=== PATIENT | female | born 1995 | race Hispanic/Latino ===

== ENCOUNTER 2019-12-15 23:50 | Emergency (ER) | payer BC, OTHER ==
[~2019-12-15] VITALS: Ht 157.5 cm; Wt 93.4 kg
--- OUTSIDE RECORDS SUMMARY | ~2019-12-15 | XMS | Encounter Summary ---
Demographics + + + | Address | [address] | | | [place] [address] | + + + | Home Phone | | + + + | Preferred Language | Unknown | + + + | Marital Status | Single | + + + | Yarsani Affiliation | [phone] | + + + | Race | Unknown | + + + | Ethnic Group | or | + + + Author + + + | Author | [facility] | | | and [place] | + + + | Organization | [facility] | | | and [place] | + + + | Address | Unknown | + + + | Phone | Unavailable | + + + Support + + +---------+ + | Name | Relationship | Address | Phone | + + +---------+ + | Nathalia Sadler | ECON | Unknown | | + + +---------+ + Care Team Providers + +------+ + | Care Hydro Station Operator Name | Role | Phone | + +------+ + PCP | Unavailable | + +------+ + Encounter Details +--------+ + + + + | Date | Type | Department | Care Team | Description | +--------+ + + + + | 10/30/ | Emergency | [facility] | Hero Caal DO | Acute conjunctivitis | | 2017 | | [facility] | [address] | of both eyes, | | | | [facility] | [address], | unspecified acute | | | | [address] | [place] [address] | conjunctivitis type; | | | | [facility] | [phone] | Corneal abrasion of | | | | [address] | | both eyes due to | | | | [phone] | | contact lens | +--------+ + + + + Social History + +-------+ +--------+------+ | Tobacco Use | Types | Packs/Day | Years | Date | | | | | Used | | + +-------+ +--------+------+ | Never Smoker | | | | | + +-------+ +--------+------+ + + + | Sex Assigned at | Date Recorded | | | | + + + | Not on file | | + + + documented as of this encounter Last Filed Vital Signs + + + + + | Vital Sign | Reading | Time Taken | Comments | + + + + + | Blood Pressure | 122/67 | 10/30/2016 1:52 PM | | | | | PDT | | + + + + + | Pulse | 91 | 10/30/2016 1:52 PM | | | | | PDT | | + + + + + | Temperature | 36.7 C (98 F) | 10/30/2016 1:52 PM | | | | | PDT | | + + + + + | Respiratory Rate | 16 | 10/30/2016 1:52 PM | | | | | PDT | | + + + + + | Oxygen Saturation | - | - | | + + + + + | Inhaled Oxygen | - | - | | | Concentration | | | | + + + + + | Weight | 86.1 kg (189 lb 13.1 | 10/30/2016 1:52 PM | | | | oz) | PDT | | + + + + + | Height | 157.5 cm (5' 2") | 10/30/2016 1:52 PM | | | | | PDT | | + + + + + | Body Mass Index | 34.72 | 10/30/2016 1:52 PM | | | | | PDT | | + + + + + documented in this encounter Medications at Time of Discharge + + + +---------+ + + | Medication | Sig | Dispensed | Refills | Start | End Date | | | | | | Date | | + + + +---------+ + + | levonorgestrel | 1 each by | | 0 | 10/31/19 | | | (MIRENA, 52 MG,) 20 | Intrauterine route | | | 17 | | | MCG/24HR IUD | once. | | | | | + + + +---------+ + + documented as of this encounter ED Notes Hero Caal DO - 10/30/2016 12:52 PM PDT ED Provider Notes by Hero Caal DO at 10/30/16 0502 Author: Hero Caal DO Service: Emergency Department Author Type: Physician Filed: 11/09/16 2350 Date of Service: 10/30/16 9475 Status: Signed Weight Control Engineer: Hero Caal DO (Physician) [facility] Department of Emergency Medicine 12:52 PM 10/30/2016 History of Present Illness Patient Identification June Campbell is a 20 y.o. female. Patient information was obtained from patient. History/Exam limitations: none. Patient presented to the Emergency Department by: Car Primary care physician: PER PT NONE Chief Complaint Chief Complaint Patient presents with Eye Problem The patient presents with eye irritation. Onset of symptoms was 2 days ago, with a worseni ng course since that time. The patient describes these symptoms as moderate severity and loc ated to the L eye. The patient reports nothing worsens symptoms, and nothing relieves sympto ms. Patient reports 2 days ago she began having pain to the L eye with associated redness. P laura reports she believes she has an infection in her L eye and was concerned about her sy mptoms, prompting her to the ED for evaluation. Patient states she does wear contact lenses and is unsure if this caused her symptoms. Patient states her irritation now seems to be spr eading to her R eye. Patient also complains of increased L eye drainage ("my eye was stuck s hut this morning") and blurred vision in L eye (chronic but worse over last 2 days). Pt den ies current or recent fever/chills, headache, facial pain, rhinorrhea, sore throat, chest pa in, dyspnea, abdominal pain, N/V, appetite changes, bowel or bladder habit changes, skin merrick h, paresthesias, myalgias/arthralgias, gait abnormalities, lymphadenopathy, or non-traumatic bruising. Patient states she has applied warm compresses to the eye without significant imp rovement in her symptoms. Patient denies any known sick contacts with similar symptoms. Past Medical History Diagnosis Date Unspecified visual disturbance wears contacts or glasses History reviewed. No pertinent surgical history. Prior to Admission medications Not on File No Known Allergies Social History Social History Marital status: Single Spouse name: N/A Number of children: N/A Years of education: N/A Occupational History Not on file. Social History Main Topics Smoking status: Never Smoker Smokeless tobacco: Never Used Alcohol use No Drug use: Types: Marijuana Comment: occasional Sexual activity: No Other Topics Concern Not on file Social History Narrative No narrative on file History reviewed. No pertinent family history. Review of Systems Constitutional: Negative for: fever, chills Eyes: Positive for: L eye irritation Nose: Negative for: nosebleed Throat: Negative for: sore throat or dysphagia Cardiovascular/Respiratory: Negative for: chest pain, shortness of breath, cough Gastrointestinal: Negative for: abdominal pain, nausea/vomiting, diarrhea, constipation, b lack or bloody stools Genitourinary: Negative for: dysuria, hematuria, or increased urinary frequency Musculoskeletal: Negative for: joint pain, myalgias, or restriction of range of motion Skin: Negative for: laceration or lesion Neuro and psych: Negative for: fainting, head injury, seizure, trouble walking Endocrine/Heme/Lymph: Negative for: swollen lymph nodes, easy bruising Physical Exam BP (!) 129/92 (BP Location: Left upper arm) | Pulse 76 | Temp 98 F (36.7 C) (Oral) | Resp 16 | Ht 1.575 m (5' 2") | Wt 86.1 kg (189 lb 13.1 oz) | LMP 10/27/2016 | SpO2 97% | BMI 34.72 kg/m Vitals: Mildly elevated blood pressure w/out h/o HTN, otherwise normal. Pulse Oximetry Interpretation: Normal General: Alert, in no acute distress Eyes: Pupils equal and round, equally brisk responsiveness to light, non-icteric Extraocular motion intact L eye: diffuse fluorescein uptake from the 7 o'clock to the 5 o'clock position without ul ceration. Conjunctiva is injected and there is visible yellowish discharge on the lower eyel id. R eye: Single point of fluorescein uptake at the 5 o'clock position that does not overly the central portion of the anterior chamber. Conjunctiva is injected with a visible yellowis h discharge on the lower eyelid. ENT: Moist mucous membranes, pink appearing Neck: Normal appearing CVS: Rate and rhythm normal No murmurs Respiratory: Breath sounds normal bilaterally, normal chest rise and fall, no obvious traum a Abdomen: Normal appearing Back: Moves without difficulty Extremities: Moves all extremities Skin: Color normal Warm and dry No rash Neuro: No gross motor/sensory deficits noted Medical Decision Making and Emergency Department Course ED Department Course 12:52 PM. Patient presents with eye irritation. After gathering and discussing HPI, ROS, P MHX, SurgHx, FmHx, and physically examining the patient I have discussed differential consid erations including, but not limited to, viral conjunctivitis, bacterial conjunctivitis, belle rgic etiology, corneal abrasion, vs other. Of the differential considerations I am most crystal picious for viral conjunctivitis, however I cannot exclude bacterial conjunctivitis. Will p erform thorough eye examination on patient to further assess symptoms (see Epic record for t ests specifically ordered). Labs and imaging not indicated at this time. Pt is non-toxic melissa earing and I anticipate pt will be discharged. Patient indicates understanding of expected c ourse of ED evaluation and care. The patient was noted to have elevated blood pressure during their emergency department vis it. Causes of hypertension could include acute pain, stressful situation/anxiety, primary hy pertension, uncontrolled hypertension, hypertensive urgency, or hypertensive emergency. Ther e are no overt signs of end organ damage at this time (acute OR, aortic dissection, acute CV A, etc) and no indication for emergent reduction in the blood pressure in the emergency depa rtment. The patient has been given instructions for need for follow-up timeframe within four weeks maximum. The patient will follow up with their primary physician for recheck of the blood pressure and outpatient management. These recommendations meet criteria for measure # 317 of the physician quality reporting system. 1:30 PM. Performed eye examination on patient. Patient appears to have bilateral conjunctiv itis as well as bilateral corneal abrasions, L greater than R. I have discussed with patient that she should not wear her contact lenses until her symptoms resolve and is seen by her e ye doctor and recommended she use her eye glasses instead. [facility] and she will follow up in office within the next couple of days for reevaluation. Will discharge home with Rx for Ciprofloxacin ophthalmic drops. Pt with subjectively reported improvement in symptoms. Pt is non-toxic appearing. No acut e life or limb threatening condition identified. Impressions have been discussed. Printed d ischarge instructions provided with topics selected from most likely diagnosis consistent wi th physical exam findings, as well as any lab and imaging results. Verbal discharge instruc tions provided and discussed. I specifically discussed with the patient/family/medical DPOA /advocate that the diagnosis reached after evaluation today may not represent the totality o f the patients medical condition, but after evaluation the patient appears appropriate for c ontinuing outpatient evaluation unless otherwise specified. I also discussed with the patie nt/family/medical DPOA/advocate that a more precise diagnosis may be reached later as sympto ms continue to present and evolve. Given the limitations presented by an isolated evaluatio n of a previously unknown patient inherent to/in an emergency department setting, I have cou nseled the patient to follow up with their primary care provider (or emergent return to the emergency department if establishment with a primary care provider has not been conducted an d condition worsens) to ensure ongoing evaluation and treatment as indicated, and have recom mended follow up in 1-2 days although actual scheduling is controlled by the primary care pr ovider and not the Emergency Department physician or staff. Expectant outcome, as far as co uld be determined by this singular emergency department evaluation, was discussed. We have also discussed specific, as well as general, emergent RTED instructions. Adverse drug react ions for medications, if prescribed, were addressed including recommendations to avoid drivi ng, operating heavy machinery, or engaging in any tasks that might be affected by impaired m entation secondary to medications. All questions addressed and patient indicates verbal und erstanding of my instructions. Pt ready for discharge. Vital signs at discharge are stable and improving, no signs or symptoms of end-organ dysfun ction are present. Vitals: 10/30/16 1254 10/30/16 1352 BP: (!) 129/92 122/67 BP Location: Left upper arm Right upper arm Pulse: 76 91 Resp: 16 16 Temp: 98 F (36.7 C) TempSrc: Oral SpO2: 97% 98% Weight: 86.1 kg (189 lb 13.1 oz) Height: 1.575 m (5' 2") Records Reviewed Old medical records. Nursing notes. 1 Prior ED visits for unrelated complaints. Medications administered during ED Evaluation and Treatment: Medications proparacaine (ALCAINE) 0.5 % ophthalmic solution 2 drop (2 drops Ophthalmic Given 10/30/16 13 09) fluorescein ophthalmic strip 1 strip (1 strip Both Eyes Given 10/30/16 1309) Laboratory Evaluation Results None Radiology and EKG Evaluation Imaging Results None Labs and imaging reviewed. All pertinent positives noted and addressed. Results have been discussed with the patient. ED Diagnoses Final diagnoses Acute conjunctivitis of both eyes, unspecified acute conjunctivitis type Corneal abrasion of both eyes due to contact lens Disposition: ED Disposition ED Disposition Condition Comment Discharge Good Follow-up Information Follow up With Specialties Details Why Contact Info [facility] Emergency Department in [place] Emergency Medicine As needed, If symptoms wors en [address] [facility] [address] [facility] Call in 1 day to schedule next available appointment for follow up Discharge Medications: Discharge Medication List as of 10/30/2016 1:49 PM START taking these medications Details ciprofloxacin (CILOXAN) 0.3 % ophthalmic solution Apply 2 drops to eye 2 (two) times daily for 10 days. Administer 1 drop, every 2 hours, while awake, for 2 days. Then 1 drop, every 4 hours, while awake, for the next 5 days., Starting 10/30/2016, Until Mon11/09/2016, Print This document has been prepared with a voice recognition system. The possibility of "sound alike" buckle stringer errors, addition and/or deletions may occur. If there is any question p lease contact the author of the document. Additional Documentation Procedures Attending Provider Note: IHero DO personally performed the services described in this documentation, as scribed by Angelica Koenig in my presence, and it is both accurat e and complete. Chart Reviewed and Completed: 10/30/2016 2:11 PM Scribe: Chucho Pastor, scribing for and in the presence of Hero Caal DO. Signed by: Chucho Bryant 10/30/2016 2:11 PM DO Hero Pelaez DO 11/09/16 1825 documented in this en counter Plan of Treatment Not on filedocumented as of this encounter Visit Diagnoses + + | Diagnosis | + + | Acute conjunctivitis of both eyes, unspecified acute conjunctivitis type | + + | Corneal abrasion of both eyes due to contact lens | + + documented in this encounter
--- OUTSIDE RECORDS SUMMARY | ~2019-12-15 | XMS | Encounter Summary ---
Demographics + + + | Address | [address] | | | [place] [address] | + + + | Home Phone | | + + + | Preferred Language | Unknown | + + + | Marital Status | Single | + + + | Taoism Affiliation | 1041 | + + + | Race | Unknown | + + + | Ethnic Group | or | + + + Author + + + | Author | [facility] | | | and [place] | + + + | Organization | [facility] | | | and [...] Team Providers + +------+ + | Care Corrugated Fastener Driver Name | Role | Phone | + +------+ + PCP | Unavailable | + +------+ + Encounter Details +--------+ + + + + | Date | Type | Department | Care Team | Description | +--------+ + + + + | 08/14/ | Emergency | [facility] | Lisandro Matos, | Folliculitis; Acute | | 2017 | | [facility] | MD Akbar SCHMITZ | pain of right knee | | | | [facility] | [place] [address] | | | | | [address] | [phone] | | | | | [place] | | | | | | [address] | | | | | | [phone] | | | +--------+ + + + + Social History + +-------+ +--------+------+ | Tobacco Use | Types | Packs/Day | Years | Date | | | | | Used | | + +-------+ +--------+------+ | Never Assessed | | | | | + +-------+ [...] + + + | Blood Pressure | 127/59 | 08/14/2016 2:16 PM | | | | | PDT | | + + + + + | Pulse | 81 | 08/14/2016 2:16 PM | | | | | PDT | | + + + + + | Temperature | 36.8 C (98.3 F) | 08/14/2016 2:16 PM | | | | | PDT | | + + + + + | Respiratory Rate | 16 | 08/14/2016 2:16 PM | | | | | PDT | | + + + + + | Oxygen Saturation | - | - | | + + + + + | Inhaled Oxygen | - | - | | | Concentration | | | | + + + + + | Weight | 83 kg (182 lb 15.7 | 08/14/2016 2:16 PM | | | | oz) | PDT | | + + + + + | Height | 157.5 cm (5' 2") | 08/14/2016 2:16 PM | | | | | PDT | | + + + + + | Body Mass Index | 33.47 | 08/14/2016 2:16 PM | | | | | PDT | | + + + + + documented in this encounter ED Notes Lisandro Matos MD - 08/14/2016 12:46 PM PDTFormatting of this note might be different fro m the original. ED Provider Notes by Lisandro Matos MD at 08/14/16 4479 Author: Lisandro Matos MD Service: (none) Author Type: Physician Filed: 08/20/16 0910 Date of Service: 08/14/16 1031 Status: Signed Spoke Maker: Lisandro Matos MD (Physician) [facility] Department of Emergency Medicine 12:46 PM History of Present Illness Patient Identification June Campbell is a 20 y.o. female. Patient information was obtained from patient. History/Exam limitations: none. Patient presented to the Emergency Department by: Car Chief Complaint Chief Complaint Patient presents with Knee Pain Right knee pain that started 3 day's ago wth intermittent numbness This is a 20 y.o. female with chief complaint of R knee pain. Onset of symptoms was 3 days ago, with an intermittent course since that time. The symptoms are currently described as a sharp stabbing pain in the knee, as if a needle is stabbing the knee. She states her pain do es not feel like it is in the kneecap and notes when she does experience this pain, she fouzia ot walk. She cannot recall any event that could have caused her pain. Symptoms are not impro xochilt or worsened by anything. Pt also complains of intermittent paresthesias to the RLE. Pt denies recent fall or injury, pain with movement of the R knee or bearing weight on the R le g, CP, SOB, or any other sx at this time. Care prior to arrival consisted of Tylenol and mas sages, with no significant relief. Pt has no pertinent PMH PCP: PER PT NONE History reviewed. No pertinent past medical history. History reviewed. No pertinent past surgical history. Prior to Admission medications Not on File No Known Allergies Social History Social History Marital Status: Single Spouse Name: N/A Number of Children: N/A Years of Education: N/A Occupational History Not on file. Social History Main Topics Smoking status: Never Smoker Smokeless tobacco: Not on file Alcohol Use: Yes Drug Use: No Sexual Activity: No Other Topics Concern Not on file Social History Narrative No narrative on file History reviewed. No pertinent family history. Review of Systems Review of Systems Constitutional: Negative for fever. HENT: Negative for congestion and sore throat. Respiratory: Negative for shortness of breath. Cardiovascular: Negative for chest pain. Gastrointestinal: Negative for nausea, vomiting and diarrhea. Musculoskeletal: Negative for myalgias and joint pain. Skin: Negative for itching and rash. Positive for pain over the R knee Neurological: Positive for sensory change (intermittent paresthesias in the R leg). Negativ e for headaches. All other systems reviewed and are negative. Physical Exam BP 131/60 mmHg | Pulse 95 | Temp(Src) 98.3 F (36.8 C) | Resp 16 | Ht 1.575 m (5' 2") | Wt 83 kg (182 lb 15.7 oz) | BMI 33.46 kg/m2 | LMP 07/27/2016 Vitals: WNL Pulse Oximetry Interpretation: Normal General: Alert, in no acute distress, non-toxic Head: Normocephalic. Atraumatic. Eyes: Normal inspection, pupils equal and round, non-icteric, EOM full ENT: Ears and nose normal external inspection Pharynx normal Moist mucous membranes, pink appearing Neck: Normal inspection Supple No lymphadenopathy. No JVD CVS: Rate and rhythm normal No Bruits. No murmurs Respiratory: Breath sounds normal bilaterally, normal chest rise and fall, no obvious traum a Abdomen: Soft, non-distended, Bowel sounds unremarkable. CVA's non-tender. No guarding or r ebound. No masses. No hernias. Rectal deferred Back: No point tenderness. Moves without difficulty Extremities: Moves all extremities without pain or restriction. No obvious deformity. Well perfused. No effusion, FROM without pain, point ttp overlying the R patella in an area of er ythema. No calf tenderness No leg swelling. No pain with dorsiflexion. Skin: Color normal. Warm and dry. No rash noted Neuro: No gross motor/sensory deficits noted. No facial asymmetry Medical Decision Making and Emergency Department Course ED Department Course 12:46 PM Pt presents to the ED complaining of pain in the skin overlying the R knee. Exam a s noted above I feel that the list of possible emergent diagnoses that the patient requires an evaluation for includes (but is not limited to) patellomalacia, cellulitis, folliculitis, vs other. I believe that further diagnostic testing is necessary to ensure that there is no acute emerge nt cause of the symptoms. 2:01 PM XR R knee is negative for fracture. This could be a folliculitis as the pt states t he pain is in the skin rather than the joint of the knee. Will start on a course of Keflex a nd d/c home. I have discussed my clinical impression and treatment plan with the pt. Patient is stable a t this time and does not meet admission criteria. We have specifically discussed the signs a nd symptoms that would constitute the need for an immediate return to the ED, the importance of continued outpatient f/u and the importance of compliance with the d/c instructions. I h ave answered any questions that the pt has to the best of my ability. Based upon the pt s history, physical exam, ED course, and diagnostic studies, I feel ellen t there is no current emergent medical condition that warrants admission, transfer, or furth er ED treatment at this time. Medications - No data to display Filed Vitals: 08/14/16 1226 08/14/16 1415 BP: 131/60 127/59 Pulse: 95 81 Temp: 98.3 F (36.8 C) Resp: 16 16 Height: 1.575 m (5' 2") Weight: 83 kg (182 lb 15.7 oz) SpO2: 97% Records Reviewed Old medical records. Nursing notes. Laboratory Evaluation Results None Radiology and EKG Evaluation Imaging Results XR Knee Right 3 Views (Final result) Result time: 08/14/16 14:05:33 Final result by Rad Results In Greg (08/14/16 14:05:33) Impression: 1. Normal examination of the knee. Narrative: JUNE CAMPBELL XR KNEE 3 VIEW RIGHT HISTORY: 20 years. Female. Knee pain TECHNIQUE: Three views of the knee were obtained. COMPARISON: None. FINDINGS: The osseous structures are well mineralized without evidence of fracture or dislocation. T he soft tissues are unremarkable. The joint spaces are preserved. No joint effusion. ED Diagnoses Final diagnoses Folliculitis Acute pain of right knee Disposition: ED Disposition Discharge Condition at discharge: Stable Follow-up Information Follow up With Details Comments Contact Info [facility] MD Miller Call As needed [address] [facility] [address] Your doctor Call As needed [facility]'s Emergency Department in [place] If symptoms worsen [address] [facility] [address] Discharge Medications: Discharge Medication List as of 08/14/2016 2:11 PM START taking these medications Details cephALEXin (KEFLEX) 500 MG capsule Take 1 capsule by mouth 4 (four) times daily., Starting 08/14/2016, Until Mon08/19/16, Print Lisandro Matos MD Procedures Additional Documentation Procedures Attending Provider Note: I, Lisandro Matos MD personally performed the services described in this documentation, as scribed by Tiarra Ospina in my presence, and it is both accurate a nd complete. Chart Reviewed and Completed: 08/14/2016 3:41 PM Scribe: Chucho Arredondo, scribing for and in the presence of Lisandro Matos MD. Signed by: Chucho Warner 08/14/2016 3:39 PM Lisandro Matos MD 08/20/16 0910 documented in this e ncounter Plan of Treatment Not on filedocumented as of this encounter Procedures + +--------+ + + + | Procedure Name | Priori | Date/Time | Associated Diagnosis | Comments | | | ty | | | | + +--------+ + + + | XR KNEE RIGHT 3 VW | Routin | 08/14/2016 | | Results for this | | | e | 1:10 PM | | procedure are in the | | | | PDT | | results section. | + +--------+ + + + documented in this encounter Results XR Knee Right 3 Vw (08/14/2016 1:10 PM PDT) + + | Specimen | + + | | + + + + + | Impressions | Performed At | + + + | 1. Normal examination of the knee. | | + + + + + + | Narrative | Performed At | + + + | JUNE CAMPBELL XR KNEE 3 VIEW RIGHT HISTORY: 20 years. | | | Female. Knee pain TECHNIQUE: Three views of the knee were | | | obtained. COMPARISON: None. FINDINGS: The osseous structures | | | are well mineralized without evidence of fracture or dislocation. | | | The soft tissues are unremarkable. The joint spaces are preserved. | | | No joint effusion. | | + + + + + | Procedure Note | + + | Rajesh Garza - 11/08/2018 8:33 AM PDT JUNE MEYER KNEE 3 VIEW RIGHT | | HISTORY:20 years. Female. Knee pain TECHNIQUE:Three views of the knee were obtained. | | COMPARISON:None. FINDINGS:The osseous structures are well mineralized without evidence | | of fracture or dislocation. The soft tissues are unremarkable. The joint spaces are | | preserved. No joint effusion. IMPRESSION: 1. Normal examination of the knee. | | | |TECHNIQUE: | |Three views of the knee were obtained. | | | |COMPARISON: | |None. | | | |FINDINGS: | |The osseous structures are well mineralized without evidence of fracture or dislocation. T he soft tissues are unremarkable. The joint spaces are preserved. No joint effusion. | | | |IMPRESSION: | |1. Normal examination of the knee. | | | | | | | + + documented in this encounter Visit Diagnoses + + | Diagnosis | + + | Folliculitis Other specified disease of hair and hair follicles | + + | Acute pain of right knee | + + documented in this encounter
--- OUTSIDE RECORDS SUMMARY | ~2019-12-15 | XMS | Encounter Summary ---
Demographics + + + | Address | [address] | | | [place] [address] | + + + | Home Phone | | + + + | Preferred Language | Unknown | + + + | Marital Status | Single | + + + | Yazidism Affiliation | 1041 | + + + | Race | Unknown | + + + | Ethnic Group | or | + + + Author + + + | Author | [facility] | | | and [place] | + + + | Organization | [facility] | | | and [...] Team Providers + +------+ + | Care Auto Air Conditioning Mechanic Name | Role | Phone | + +------+ + PCP | Unavailable | + +------+ + Encounter Details +--------+ + + + + | Date | Type | Department | Care Team | Description | +--------+ + + + + | 10/30/ | Orders Only | [facility] | Conversion | | | 2017 | | CONVERSION DEP 888 | Transaction, | | | | | JADYN SCHMITZ | Provider Unknown | | | | | [place] | [phone] | | | | | [address] | | | | | | [phone] | | | +--------+ + + + [...] + + documented as of this encounter Plan of Treatment Not on filedocumented as of this encounter Visit Diagnoses Not on filedocumented in this encounter"
--- OUTSIDE RECORDS SUMMARY | ~2019-12-15 | XMS | Clinical Summary ---
Demographics + + + | Address | [address] | | | [place] [address] | + + + | Home Phone | | + + + | Preferred Language | Unknown | + + + | Marital Status | Single | + + + | Zoroastrianism Affiliation | 1041 | + + + | Race | Unknown | + + + | Ethnic Group | or | + + + Author + + + | Author | [facility] | | | and [place] | + + + | Organization | [facility] | | | and [...] Team Providers + +------+ + | Care Cnc Operator Machinist Name | Role | Phone | + +------+ + PCP | Unavailable | + +------+ + Allergies No Known Allergies Medications + + + +---------+------+------+-------+ | Medication | Sig | Dispensed | Refills | Star | End | Statu | | | | | | t | Date | s | | | | | | Date | | | + + + +---------+------+------+-------+ | levonorgestrel | 1 each by | | 0 | 08/0 | | Activ | | (MIRENA, 52 MG,) 20 | Intrauterine route | | | 6/20 | | e | | MCG/24HR IUD | once. | | | 17 | | | + + + +---------+------+------+-------+ Active Problems Not on file Social History + +-------+ +--------+------+ | Tobacco [...] on file | | + + + Last Filed Vital Signs + + + [...] | | + + + + + Plan of Treatment + + +-------+ + | Health Maintenance | Due Date | Last | Comments | | | | Done | | + + +-------+ + | Vaccine: HPV (1 - | | | | | 2-dose series) | 6 | | | + + +-------+ + | Vaccine: | | | | | Dtap/Tdap/Td (1 - | 4 | | | | Tdap) | | | | + + +-------+ + | Cervical Cancer | | | | | Screening (Pap) | 6 | | | + + +-------+ + | Vaccine: Influenza | | | | | (#1) | 0 | | | + + +-------+ + Results Not on filefrom Last 3 Months
--- OUTSIDE RECORDS SUMMARY | 2019-12-15 23:52 | XMS ---
PreManage Notification: SHARIFA GERONIMO Security Instrument Installer Events No recent Security Events currently on file CRITERIA MET - [facility] - 2 Visits in 30 Days CARE PROVIDERS YUDY STORM Physician Supervisor [employer] Current PHONE: [phone] Tana has no Care Guidelines for this patient. EGokul VISIT COUNT (12 MO.) 2 [facility] TOTAL 2 NOTE: Visits indicate total known visits. ED/UCC VISIT TRACKING (12 MO.) 12/15/2019 23:50 [facility] TYPE: Emergency COMPLAINT: - VAGINAL BLEEDING/CLOTS 12/14/2019 00:44 [facility] TYPE: Emergency COMPLAINT: - VAGINAL BLEEDING/CLOTS INPATIENT VISIT TRACKING (12 MO.) No inpatient visits to display in this time frame [id number]
== END 2019-12-16 02:07 | disposition home or self-care (01) ==
LOC: ED 23:50
DX: O03.4 Incomplete spontaneous abortion without complication (principal)
CPT/HCPCS: 84702; 99284